=== PATIENT | female | born 1935 | race Caucasian/White ===

== ENCOUNTER → 2023-07-24 | Day surgery (SDC) | payer MEDICARE, MEDICAID ==
[~2023-07-24] VITALS: Ht 152.4 cm; Wt 47.2 kg
[~2023-07-24] MED LIST: AMLO2.5T45 PO; APIX5TAB PO; ASPI-1497 PO; ATEN50TA PO; FAMO20TA8 PO; HYDR12.54 PO; IRON-26 PO; LEVO100T PO; OMEP40CA20 PO; SIMV-43 PO
== END | disposition home or self-care (01) ==
LOC: CCL 07:09
PROVIDERS: ATTEND Specialist
DX: I73.9 Peripheral vascular disease, unspecified (principal); Z53.8 Procedure and treatment not carried out for other reasons; I12.9 Hypertensive chronic kidney disease with stage 1 through stage 4 chronic kidney disease, or unspecified chronic kidney disease; N18.9 Chronic kidney disease, unspecified; E78.5 Hyperlipidemia, unspecified; I25.10 Atherosclerotic heart disease of native coronary artery without angina pectoris; E03.9 Hypothyroidism, unspecified; Z86.73 Personal history of transient ischemic attack (TIA), and cerebral infarction without residual deficits; Z98.890 Other specified postprocedural states
CPT/HCPCS: Z7610 ×3

== ENCOUNTER 2023-08-21 06:07 | Inpatient (IN) | payer MEDICARE, MEDICAID ==
[~2023-08-21] VITALS: Ht 154.9 cm; Wt 46.5 kg
[~2023-08-21 06:07] MED LIST changes: -ASPI-1497 PO
[2023-08-21] MEDS ORDERED: IODIXANOL 320MG/ML 100 ML BOTTLE IV ONE (07:32)
[2023-08-21] MEDS ORDERED: LIDOCAINE HCL 1% 20ML VIAL (Pyxis) INJ ONE (07:32)
[2023-08-21] MEDS ORDERED: HYDR-4001 PO (07:56)
[2023-08-21] MEDS ORDERED: ACET-2708 PO (07:56)
[2023-08-21] MEDS ORDERED: IBUP-1653 PO (07:56)
[2023-08-21] MEDS ORDERED: MIDAZOLAM HCL 2 MG/2 ML VIAL ONE (08:30)
[2023-08-21] MEDS ORDERED: FENTANYL CITRATE/PF 50MCG/ML 2ML VIAL ONE (08:31)
[2023-08-21 08:51] LABS: CALCIUM 8.3 mg/dL (8.7-10.4); CREATININE 1.1 mg/dL (0.6-1.0); POTASSIUM 4.6 mEq/L (3.5-5.1)
[2023-08-21] MEDS ORDERED: ASPIRIN 325MG TABLET ONE (09:58)
[2023-08-21] MEDS ORDERED: CLOPIDOGREL 75MG TABLET ONE (09:59)
[2023-08-21] MEDS ORDERED: ACETAMINOPHEN 325MG TABLET PO PRN (10:15)
[2023-08-21] MEDS ORDERED: ATROPINE SULFATE 1MG/10ML SYR IV PRN (10:15)
[2023-08-21] MEDS ORDERED: ONDANSETRON HCL 4MG/2ML INJ IV PRN (10:15)
[2023-08-21 10:59] VITALS: BP 163/60; PULSE 62; RESP 18; TEMP 97.7
[2023-08-21 11:08] VITALS: BP 163/60; PULSE 62; RESP 18; TEMP 97.7
[2023-08-21] MEDS ORDERED: ACETAMINOPHEN 500MG TABLET PO PRN (11:15)
[2023-08-21] MEDS ORDERED: ATOR20TA PO (11:20)
[2023-08-21] MEDS ORDERED: HYDRALAZINE 20MG/ML VIAL IV PRN (11:45)
[2023-08-21] MEDS: AMLODIPINE 5MG TABLET PO SCH (12:00)
[2023-08-21 16:00] VITALS: BP 163/60; PULSE 60; RESP 17; TEMP 97.3
[2023-08-21 20:00] VITALS: BP 135/50; PULSE 69; RESP 21; TEMP 98.4
[2023-08-21] MEDS: ATORVASTATIN CALCIUM 20MG TABLET PO SCH (20:56)
[2023-08-21] MEDS: OMEPRAZOLE 20MG CAPSULE EXTENDED RELEASE PO NR (20:56)
[2023-08-21 21:00] VITALS: BP 130/52; PULSE 73; RESP 25
[2023-08-21 23:10] VITALS: BP 140/59; PULSE 76; RESP 22
[2023-08-21] MEDS: HYDROCODONE/ACETAMINOPHEN 5/325MG TABLET PO PRN (23:14)
[2023-08-22] VITALS: BP 107/60; PULSE 81; RESP 20; TEMP 97.8
[2023-08-22 04:00] VITALS: BP 120/45; PULSE 64; RESP 13; TEMP 97.7
[2023-08-22] MEDS: OMEPRAZOLE 20MG CAPSULE EXTENDED RELEASE PO SCH (06:16)
[2023-08-22 06:58] LABS: BASOPHILS % 0.9 % (0.0-2.0); EOSINOPHILS % 8.4 % (0.0-5.0); HEMATOCRIT. 27.2 % (36.0-48.0); LYMPHOCYTES % 20.2 % (20.0-50.0); MEAN CORPUSCULAR HGB CONC 32.9 g/dL (31.0-37.0); MEAN CORPUSCULAR VOLUME 94.1 fL (81.0-99.0); MEAN PLATELET VOLUME 8.2 fl (7.4-10.4); MONOCYTES % 9.9 % (2.0-8.0); NEUTROPHILS % 60.6 % (40.0-76.0); PLATELET 204 x1000/uL (130-400); RED BLOOD CELL COUNT 2.89 mill/uL (4.2-5.4)
[2023-08-22] MEDS: ASPIRIN 81MG TABLET PO SCH (07:35)
[2023-08-22] MEDS: CLOPIDOGREL 75MG TABLET PO SCH (07:35)
[2023-08-22 08:00] VITALS: BP 137/53; PULSE 71; RESP 12; TEMP 97.9
[2023-08-22] MEDS: LEVOTHYROXINE SODIUM 100MCG TABLET PO SCH (08:13)
[2023-08-22] MEDS: FERROUS SULFATE 325MG TABLET PO SCH (08:14)
[2023-08-22] MEDS: AMLODIPINE 5MG TABLET PO SCH (08:14)
[2023-08-22 08:30] LABS: CALCIUM 8.1 mg/dL (8.7-10.4); CARBON DIOXIDE 23 mEq/L (21-32); CHLORIDE 110 mEq/L (98-107); GLUCOSE 74 mg/dL (70-105); POTASSIUM 4.3 mEq/L (3.5-5.1); SODIUM 141 mEq/L (136-145); UREA NITROGEN BLOOD 23 mg/dL (9-23)
[2023-08-22 08:58] LABS: HEPATITIS B SURFACE ANTIGEN NEGATIVE (Negative); HEPATITIS C AB NON REACTIVE (Neg) (Negative)
[2023-08-22] MEDS ORDERED: ASCORBIC ACID PO SCH (09:00)
[2023-08-22] MEDS ORDERED: [UNRECOGNIZED DRUG - OTHER] PO SCH (09:00)
[2023-08-22] MEDS ORDERED: ASPIRIN 325MG TABLET PO SCH (09:00)
[2023-08-22] MEDS: SODIUM CHLORIDE 0.45% 1,000 ML IV SCH (10:00)
[2023-08-22] MEDS ORDERED: NALOXONE HCL 0.4MG/ML VIAL IV PRN (11:00)
[2023-08-22] MEDS ORDERED: BUPIVACAINE HCL/PF 0.5% (5MG/ML) 10ML ONE (11:31)
[2023-08-22] MEDS ORDERED: LIDOCAINE HCL 1% 10 MG/ML 10ML VIAL ONE ×2 (11:31→14:40)
[2023-08-22 12:00] VITALS: BP 143/53; PULSE 86; RESP 23; TEMP 97.4
[2023-08-22] MEDS: MAGNESIUM 2 G PREMIX 50 ML IV SCH (12:26)
[2023-08-22 12:32] LABS: PARTIAL THROMBOPLASTIN TIME 28.1 sec (23.4-31.0); PROTHROMBIN TIME 10.8 sec (9.6-11.0)
[2023-08-22] MEDS ORDERED: PROPOFOL 10MG/ML 100ML 100 ML IV ONE ×2 (14:35→14:44)
[2023-08-22] MEDS ORDERED: PHENYLEPHRINE HCL 10 MG/ML 1ML (IV VIAL) IV ONE (14:40)
[2023-08-22] MEDS ORDERED: EPHEDRINE SULFATE 50MG/ML VIAL ONE (14:40)
[2023-08-22] MEDS ORDERED: FENTANYL CITRATE/PF 50MCG/ML 2ML VIAL ONE (14:40)
[2023-08-22] MEDS ORDERED: PROPOFOL 200MG/20ML VIAL IV ONE (14:40)
[2023-08-22] MEDS ORDERED: FENTANYL CITRATE/PF 50MCG/ML 2ML VIAL IV PRN (16:15)
[2023-08-22 18:06] VITALS: BP 137/60; PULSE 104; RESP 23
[2023-08-22 20:00] VITALS: BP 137/75; PULSE 101; RESP 23; TEMP 98.1
[2023-08-23] VITALS: BP 135/70; PULSE 100; RESP 19; TEMP 97.6
[2023-08-23 04:00] VITALS: BP 118/51; PULSE 86; PULSE 98; RESP 15; RESP 17; TEMP 97.7
[2023-08-23 07:09] LABS: BASOPHILS % 0.2 % (0.0-2.0); EOSINOPHILS % 1.1 % (0.0-5.0); HEMATOCRIT. 27.1 % (36.0-48.0); HEMOGLOBIN. 9.3 g/dL (12.0-16.0); LYMPHOCYTES % 8.4 % (20.0-50.0); MEAN CORPUSCULAR HEMOGLOBIN 31.7 pg (28.0-32.0); MEAN CORPUSCULAR HGB CONC 34.2 g/dL (31.0-37.0); MEAN CORPUSCULAR VOLUME 92.7 fL (81.0-99.0); MEAN PLATELET VOLUME 8.1 fl (7.4-10.4); MONOCYTES % 10.3 % (2.0-8.0); PLATELET 225 x1000/uL (130-400); RED BLOOD CELL COUNT 2.93 mill/uL (4.2-5.4); RED CELL DISTRIBUTION WIDTH 15.5 % (11.6-14.6); WHITE BLOOD COUNT 9.6 x1000/uL (4.5-11.0)
[2023-08-23 07:15] VITALS: BP 114/46; PULSE 91; RESP 18; TEMP 96.5
[2023-08-23 07:44] LABS: CALCIUM 8.1 mg/dL (8.7-10.4); POTASSIUM 4.4 mEq/L (3.5-5.1)
[2023-08-23] MEDS: MAGNESIUM OXIDE 400MG TABLET PO SCH (08:49)
[2023-08-23 12:00] VITALS: BP 119/50; PULSE 81; RESP 14; TEMP 98.2
[2023-08-23 15:10] VITALS: BP 119/50; PULSE 81; TEMP 98.2
[2023-08-23 15:55] VITALS: BP 108/42; PULSE 84; RESP 15; TEMP 98.3
== END 2023-08-23 16:14 | disposition home or self-care (01) | DRG 182 ==
LOC: CCL 06:07 → 3WST 06:08
PROVIDERS: ADMIT Specialist; ATTEND Specialist
PROC: 047M3DZ Dilation of Right Popliteal Artery with Intraluminal Device, Percutaneous Approach (ICD-10-PCS; principal; 2023-08-21)
PROC: B41FYZZ Fluoroscopy of Right Lower Extremity Arteries using Other Contrast (ICD-10-PCS; 2023-08-21)
PROC: 0Y6P0Z0 Detachment at Right 1st Toe, Complete, Open Approach (ICD-10-PCS; 2023-08-22)
DX: I70.263 Atherosclerosis of native arteries of extremities with gangrene, bilateral legs (principal); D64.9 Anemia, unspecified; E03.9 Hypothyroidism, unspecified; E78.5 Hyperlipidemia, unspecified; I12.9 Hypertensive chronic kidney disease with stage 1 through stage 4 chronic kidney disease, or unspecified chronic kidney disease; N18.9 Chronic kidney disease, unspecified; Z79.01 Long term (current) use of anticoagulants; Z79.02 Long term (current) use of antithrombotics/antiplatelets; Z79.82 Long term (current) use of aspirin; Z79.899 Other long term (current) drug therapy; Z86.718 Personal history of other venous thrombosis and embolism; Z89.419 Acquired absence of unspecified great toe
CPT/HCPCS: 36415; 37224; 75710; 80048; 83735; 84443; 85025; 85347; 86705; 87070; 87075; 87077; 87186; 87340; 88305; 88311; 93005; C1725; C1760; C1769; C1887; C1893; C1894; J1644; J2250; J2370; J2704; J3010; J3475; J3490; J7120; Q9967

== ENCOUNTER → 2024-07-30 | Day surgery (SDC) | payer MEDICARE, MEDICAID ==
[~2024-07-30] VITALS: Ht 152.4 cm; Wt 47.2 kg
[~2024-07-30] MED LIST changes: +ACET-2708 PO; -AMLO2.5T45 PO; -APIX5TAB PO; +ATOR20TA PO; +EPHEDRINE SULFATE 50MG/ML VIAL ONE; +HYDR-4001 PO; +LEVO75TA7 PO; +ONDANSETRON HCL 4MG/2ML INJ IV PRN; +PHENYLEPHRINE HCL 10MG/ML 1ML IV ONE; +POLYMYXIN B SULFATE 500000 UNITS/VIAL ONE; +PROPOFOL 200MG/20ML VIAL IV ONE
[2024-07-30 09:22] LABS: BASOPHILS % 0.7 % (0.0-2.0); EOSINOPHILS % 9.2 % (0.0-5.0); HEMATOCRIT. 27.3 % (36.0-48.0); HEMOGLOBIN. 8.6 g/dL (12.0-16.0); MEAN CORPUSCULAR HEMOGLOBIN 28.6 pg (28.0-32.0); MEAN CORPUSCULAR HGB CONC 31.6 g/dL (31.0-37.0); MEAN CORPUSCULAR VOLUME 90.7 fL (81.0-99.0); MEAN PLATELET VOLUME 7.8 fl (7.4-10.4); MONOCYTES % 9.7 % (2.0-8.0); NEUTROPHILS % 65.4 % (40.0-76.0); PLATELET 188 x1000/uL (130-400); RED BLOOD CELL COUNT 3.01 mill/uL (4.2-5.4); RED CELL DISTRIBUTION WIDTH 23.5 % (11.6-14.6)
[2024-07-30 09:25] LABS: ADD RBC MORPHOLOGY YES; DIFFERENTIAL COMMENT 1
[2024-07-30 09:30] LABS: POTASSIUM 4.9 mEq/L (3.5-5.1)
[2024-07-30 09:32] LABS: CALCIUM 8.4 mg/dL (8.7-10.4)
[2024-07-30 09:34] LABS: PARTIAL THROMBOPLASTIN TIME 25.6 sec (23.4-31.0); PROTHROMBIN TIME 10.8 sec (9.6-11.0)
[2024-07-30 10:05] LABS: CREATININE 1.6 mg/dL (0.6-1.0)
[2024-07-30 13:22] LABS: ANISOCYTOSIS 2+; PLATELET ESTIMATE NORMAL
== END | disposition home or self-care (01) ==
LOC: OR 08:05
PROVIDERS: ATTEND Internal Medicine Gastroenterology
DX: D64.9 Anemia, unspecified (principal); K29.50 Unspecified chronic gastritis without bleeding; K44.9 Diaphragmatic hernia without obstruction or gangrene; E03.9 Hypothyroidism, unspecified; E78.5 Hyperlipidemia, unspecified; I12.9 Hypertensive chronic kidney disease with stage 1 through stage 4 chronic kidney disease, or unspecified chronic kidney disease; N18.9 Chronic kidney disease, unspecified; I73.9 Peripheral vascular disease, unspecified; Z79.01 Long term (current) use of anticoagulants; Z86.718 Personal history of other venous thrombosis and embolism; Z95.5 Presence of coronary angioplasty implant and graft; Z79.899 Other long term (current) drug therapy; Z79.02 Long term (current) use of antithrombotics/antiplatelets; Z98.890 Other specified postprocedural states
CPT/HCPCS: 43239; 88305; 80048; 85025; 85610; 85730; 36415; J3490 ×2; J2704; A4663; C1893